=== PATIENT | female | born 1950 | race Caucasian/White ===

== ENCOUNTER 2022-03-23 16:42 | Outpatient (REF) | payer MEDICARE, BC, SELFPAY ==
[2022-03-23 17:31] LABS: Hemoglobin* 8.5 gm/dL (12.0-16.0)
== END 2022-03-23 16:43 | disposition home or self-care (01) ==
LOC: LAB 16:42
PROVIDERS: PCP Nurse Practitioner Adult Health; Visit Provider Family Medicine
DX: D64.9 Anemia, unspecified (principal)
CPT/HCPCS: 36415; 85018